=== PATIENT | female | born 1980 | race Native Hawaiian/Other Pacific Islander ===

== ENCOUNTER 2017-10-25 11:44 | Day surgery (SDC) | payer OTHER ==
[2017-10-25 11:55] VITALS: BMI 17.7
[2017-10-25 12:19] LABS: HEMOGLOBIN 12.1 g/dL (12.0-16.0); MEAN CELL VOLUME 87.6 fl (81.0-99.0); MEAN CORPUSCULAR HEMOGLOBIN 29.4 pg (27.0-31.0); MEAN CORPUSCULAR HGB CONC 33.6 g/dL (33.0-37.0); RBC 4.11 Mil/uL (3.80-5.20); RED CELL DISTRIBUTION WIDTH 13.9 % (11.5-14.5); WHITE BLOOD COUNT 5.2 K/uL (4.8-10.8)
[2017-10-25 12:37] VITALS: O2SAT 100
[2017-10-25] MEDS ORDERED: Lactated Ringer's 1,000 ML IV ONE ×4 (12:51→19:23)
[2017-10-25] MEDS ORDERED: Lidocaine 4% (Laryng-O-Jet) Kit MM ONE (15:41)
[2017-10-25] MEDS ORDERED: Propofol 10 mg/ml Inj (20 ML) ONE (15:42)
[2017-10-25] MEDS ORDERED: Succinylcholine 200 mg/10 ml Inj IV ONE (15:42)
[2017-10-25] MEDS ORDERED: Rocuronium 10 mg/ml (5 ml) ONE (15:42)
[2017-10-25] MEDS ORDERED: Etomidate 20 mg/10ml Inj IV ONE (15:46)
[2017-10-25] MEDS ORDERED: Bupivacaine 0.5% Inj(30mL) ONE (15:50)
[2017-10-25] MEDS ORDERED: Midazolam 2 MG/2 ML VIAL ONE (16:43)
[2017-10-25] MEDS ORDERED: Dexamethasone 4 mg/1 ml ONE (17:03)
[2017-10-25] MEDS ORDERED: Sevoflurane - Inhalation Anesthetic Liq (250 ml) ONE (17:07)
[2017-10-25] MEDS ORDERED: Neostigmine 1:1000 (1 mg/ml) Inj ONE ×2 (17:51→18:00)
[2017-10-25] MEDS ORDERED: Oxycodone/Acetaminophen 5/325 mg Tab PO PRN (18:25)
[2017-10-25] MEDS ORDERED: Lactated Ringer's 1,000 ML IV SCH ×2 (18:30)
[2017-10-25] MEDS ORDERED: Morphine 4 MG/ML VIAL ONE (19:07)
[2017-10-26 00:54] VITALS: RESP 20
[2017-10-26 01:07] VITALS: BP 107/68; PULSE 90; TEMP 98.6
--- NOTE | 2017-10-26 15:56 | OP ---
PROCEDURE DATE: 10/25/2017 PREOPERATIVE DIAGNOSES: Dysmenorrhea, pelvic pain, rule out endometriosis. POSTOPERATIVE DIAGNOSES: Dysmenorrhea, pelvic pain, rule out endometriosis. PROCEDURE PERFORMED: Cystoscopy and injection of dye, robotic laparoscopy, and excision of endometriosis. SURGEON: Amor Bartholomew MD SECTION LABORER: Alonso Snider MD TYPE OF ANESTHESIA: General endotracheal. ANESTHESIA ADMINISTERED BY: Socorro Tripathi MD COMPLICATIONS: None. SPECIMENS: Multiple specimens sent to Pathology. DESCRIPTION OF PROCEDURE: After adequate anesthesia was obtained, the patient was placed in dorsal lithotomy position. She was prepped and draped, the surgeon was gowned and gloved. A time-out was taken according to hospital policy and the procedure was started. A cystoscope was inserted into the bladder and under direct visualization, 5 mL of IC-Green were injected inside each . At this point, attention was in the abdomen where an incision was made on the umbilicus, utilizing an open laparoscopy technique. The peritoneal cavity was entered and under direct visualization, three additional ports were inserted, left upper quadrant, right upper quadrant, and left mid quadrant. The da Rinku Xi robot was then docked. At this time, the procedure was started, areas of potential endometriosis with erythematous appearing peritoneal were present in the left pelvic sidewall, right pelvic sidewall, and in the cul-de-sac. They were progressively excised in a step by step fashion obtaining large swathe of peritoneum in areas including left pelvic sidewall, left ovarian fossa, posterior cervix, right pelvic sidewall, and cul-da-sac. Additionally, the helium plasma device was used to ablate the areas of inflammation. At this point, it was checked for hemostasis and appeared to excellent. The rest of the pelvis and the abdomen were examined and appeared to be normal and free of lesions. The instruments were removed, the abdomen desufflated. The da Rinku robot was undocked, and the incision was closed in layers with 0 PDS for the fascia and 4-0 Monocryl for the skin. At the end of the procedure, all tapes and instruments counts were correct. The patient tolerated the procedure well and was taken to recovery room in excellent condition. Amor Bartholomew MD [facility] # [id number]
== END 2017-10-25 23:30 | disposition home or self-care (01) ==
LOC: H.OPSURG 11:44 → H.PEDS 20:59 → H.OPSURG 23:30
PROVIDERS: ATTEND Obstetrics & Gynecology Reproductive Endocrinology
DX: N80.3 Endometriosis of pelvic peritoneum (principal); N94.6 Dysmenorrhea, unspecified
CPT/HCPCS: 36415; 58662; 85027; 86850; 86900; 88305; C1729; J0131; J0330; J0690; J1100; J1885; J2001; J2250; J2270; J2405; J2704; J2710; J2765; J3010; J7030; J7040; J7120